=== PATIENT | female | born 1960 | race Caucasian/White ===

== ENCOUNTER 2016-07-06 10:11 | Inpatient (IN) | payer MEDICAID ==
[~2016-07-06] VITALS: Ht 157.5 cm; Wt 69.4 kg
[2016-07-06] MEDS ORDERED: LORAZEPAM 2 MG/ML VIAL ONE (10:16)
[2016-07-06] MEDS ORDERED: SODIUM CHLORIDE 0.9% 1,000 ML ONE (10:49)
[2016-07-06] MEDS ORDERED: SALINE FLUSH 10 ML FLUSH PRN (14:10)
[2016-07-06] MEDS ORDERED: LORAZEPAM 2 MG/ML VIAL IV PRN (14:10)
[2016-07-06] MEDS ORDERED: FOSPHENYTOIN 1,000 PE in SODIUM CHLORIDE 0.9% 100 ML IV ONE (14:10)
[2016-07-06] MEDS ORDERED: ENOXAPARIN 40 MG/0.4 ML SYR SUBQ SCH (15:19)
[2016-07-06] MEDS ORDERED: *PINK BRACELET XX ONE (15:30)
[2016-07-06] MEDS ORDERED: MORPHINE 2 MG/ML SYR IV SCH (16:00)
[2016-07-06 16:40] VITALS: BP_SYST 138; RESP 16; TEMP 98.4
[2016-07-06 16:41] VITALS: Ht 157.5 cm; Wt 69.4 kg
[2016-07-06] MEDS ORDERED: MISSING DOSE XX ONE (17:05)
[2016-07-06] MEDS: LEVETIRACETAM INJ 500 MG in SODIUM CHLORIDE 0.9% 100 ML IV SCH ×2 (17:28→20:33)
[2016-07-06] MEDS: [UNRECOGNIZED DRUG - OTHER] XX SCH (20:00)
[2016-07-06] MEDS ORDERED: TEMAZEPAM 15 MG CAP PO ONE (20:15)
[2016-07-06 20:26] VITALS: BP_SYST 135; RESP 16; TEMP 98.6
[2016-07-06] MEDS: SALINE FLUSH 10 ML FLUSH SCH (20:32)
[2016-07-06] MEDS: ESCITALOPRAM 10 MG TAB PO SCH (20:32)
[2016-07-06] MEDS: METFORMIN 500 MG TAB PO SCH (20:33)
[2016-07-06] MEDS: LORATADINE 10 MG TAB PO SCH (20:33)
[2016-07-06] MEDS: NICOTINE 21 MG/24 HR TRANSDERM SCH (20:33)
[2016-07-06] MEDS: LISINOPRIL 10 MG TAB PO SCH (20:33)
[2016-07-06] MEDS: MORPHINE 2 MG/ML SYR IV PRN (21:23)
[2016-07-06 23:55] VITALS: BP_SYST 110; RESP 16; TEMP 98.1
[2016-07-07 03:29] VITALS: BP_SYST 132; RESP 18; TEMP 98.3
[2016-07-07] MEDS: MORPHINE 2 MG/ML SYR IV PRN ×2 (03:36→09:33)
[2016-07-07] MEDS ORDERED: SODIUM CHLORIDE 0.9% FLUSH BAG 500 ML IV SCH (06:00)
[2016-07-07] MEDS: SALINE FLUSH 10 ML FLUSH SCH (08:00)
[2016-07-07] MEDS: [UNRECOGNIZED DRUG - OTHER] XX SCH (08:00)
[2016-07-07 08:18] VITALS: BP_SYST 108; BP_SYST 123; RESP 17; RESP 19; TEMP 97.3; TEMP 98.2
[2016-07-07] MEDS: NICOTINE 21 MG/24 HR TRANSDERM SCH (09:24)
[2016-07-07] MEDS: ESCITALOPRAM 10 MG TAB PO SCH (09:25)
[2016-07-07] MEDS: LISINOPRIL 10 MG TAB PO SCH (09:25)
[2016-07-07] MEDS: LORATADINE 10 MG TAB PO SCH (09:25)
[2016-07-07] MEDS: METFORMIN 500 MG TAB PO SCH (09:26)
[2016-07-07] MEDS: LEVETIRACETAM INJ 500 MG in SODIUM CHLORIDE 0.9% 100 ML IV SCH (09:32)
== END 2016-07-07 09:03 | disposition left against medical advice (07) | DRG 101 ==
LOC: ENRESERVTM → ENRESERVDT → ER 10:11 → EMR 14:15 → PCU 15:12 → PCU2 07-07 00:09
PROVIDERS: ADMIT Internal Medicine; ATTEND Internal Medicine
DX: G40.409 Other generalized epilepsy and epileptic syndromes, not intractable, without status epilepticus (principal); I10 Essential (primary) hypertension; F32.9 Major depressive disorder, single episode, unspecified; F41.9 Anxiety disorder, unspecified; Z79.84 Long term (current) use of oral hypoglycemic drugs; F17.210 Nicotine dependence, cigarettes, uncomplicated; G89.29 Other chronic pain; M54.2 Cervicalgia; M54.9 Dorsalgia, unspecified; E11.9 Type 2 diabetes mellitus without complications; E78.00 Pure hypercholesterolemia, unspecified
CPT/HCPCS: 36415; 70450; 70551; 71010; 80051; 80053; 80307; 80320; 81003; 82140; 82330; 82803; 82947; 83018; 83605; 84146; 85025; 86038; 86618; 96361; 96374